=== PATIENT | female | born 1995 | race Two or more races ===

== ENCOUNTER 2024-05-23 15:25 | Emergency (ER) | payer OTHER ==
[~2024-05-23] VITALS: Ht 154.9 cm; Wt 53.0 kg
[2024-05-23] MEDS ORDERED: LEXA1TAB PO (15:42)
[2024-05-23] MEDS ORDERED: LEXA1TAB2 PO (15:42)
[2024-05-23 16:21] LABS: BASO # 0.1 10^3/uL (0.0-0.2); BASO % 0.5 % (0.0-1.0); EOS % 0.1 % (0.0-3.0); HEMATOCRIT 38.1 % (36.0-47.0); HEMOGLOBIN 12.4 g/dl (12.0-15.5); LYMPH % 9.4 % (24.0-44.0); MEAN CORPUSCULAR HEMOGLOBIN 29.7 pg (27.0-33.0); MEAN CORPUSCULAR HGB CONC 32.5 g/dl (32.0-36.5); MEAN CORPUSCULAR VOLUME 91.4 fl (80.0-96.0); MONO # 0.4 10^3/uL (0.0-0.8); MONO % 3.3 % (2.0-8.0); NEUTROPHILS # 9.1 10^3/uL (1.5-8.5); NEUTROPHILS % 86.3 % (36.0-66.0); PLATELET COUNT, AUTOMATED 242 10^3/uL (150-450); RED BLOOD COUNT 4.17 10^6/uL (4.00-5.40); WHITE BLOOD COUNT 10.6 10^3/uL (4.0-10.0)
[2024-05-23 16:48] LABS: LIPASE 29 U/L (12-53)
[2024-05-23 16:50] LABS: ALBUMIN 4.3 G/DL (3.2-5.2); ALKALINE PHOSPHATASE 52 U/L (46-116); ALT/SGPT 12 U/L (7.0-40); AST/SGOT 8 U/L (<34); BILIRUBIN,DIRECT 0.5 MG/DL (<0.4); BILIRUBIN,TOTAL 1.7 MG/DL (0.3-1.2); BLOOD UREA NITROGEN 16 MG/DL (9-23); CALCIUM LEVEL 8.9 MG/DL (8.5-10.1); CARBON DIOXIDE LEVEL 17 MMOL/L (20-31); CHLORIDE LEVEL 104 MMOL/L (98-107); CREATININE FOR GFR 0.71 MG/DL (0.55-1.30); GLOMERULAR FILTRATION RATE > 60.0 (>60); GLUCOSE, FASTING 70 MG/DL (60-100); POTASSIUM SERUM 3.4 MMOL/L (3.5-5.1); SODIUM LEVEL 137 MMOL/L (136-145); TOTAL PROTEIN 7.2 G/DL (5.7-8.2)
[2024-05-23 16:57] LABS: HCG, SERUM QUALITATIVE NEGATIVE (NEGATIVE)
[2024-05-23] MEDS ORDERED: ONDA-282 PO (18:21)
[2024-05-23 18:32] VITALS: BP 105/58; TEMP 98.1; O2SAT 99
[2024-05-23] MEDS: ONDANSETRON 4MG ORAL DISINTEGRATING TAB PO PRN (18:36)
== END 2024-05-23 18:48 | disposition home or self-care (01) ==
LOC: M ED 15:25
DX: F41.9 Anxiety disorder, unspecified (principal); R11.2 Nausea with vomiting, unspecified; F10.10 Alcohol abuse, uncomplicated; Z79.899 Other long term (current) drug therapy

== ENCOUNTER 2024-07-11 11:51 | Emergency (ER) | payer OTHER ==
[~2024-07-11] VITALS: Ht 162.6 cm; Wt 54.0 kg
[~2024-07-11 11:51] MED LIST: LEXA1TAB PO; LEXA1TAB2 PO; ONDA-282 PO
[2024-07-11] MEDS ORDERED: HYDR50TA70 PO (11:57)
[2024-07-11] MEDS ORDERED: MULT-90 PO (13:37)
[2024-07-11] MEDS ORDERED: VITA100093 PO (13:37)
[2024-07-11] MEDS ORDERED: ONDA-83 PO (13:37)
[2024-07-11] MEDS: ALPRAZolam 0.5 MG TAB PO ONE (14:07)
[2024-07-11] MEDS ORDERED: HOME MED LIST COMPLETE! XX SCH (14:25)
[2024-07-11] MEDS: hydrOXYzine 50 MG TAB PO STA (14:59)
[2024-07-11 15:52] VITALS: BP 115/66; TEMP 96.9; O2SAT 98
== END 2024-07-11 16:06 | disposition home or self-care (01) ==
LOC: M ED 11:51
DX: F41.9 Anxiety disorder, unspecified (principal); R01.1 Cardiac murmur, unspecified; F17.200 Nicotine dependence, unspecified, uncomplicated; Z79.83 Long term (current) use of bisphosphonates; Z79.899 Other long term (current) drug therapy